=== PATIENT | female | born 1990 | race Caucasian/White ===

== ENCOUNTER 2025-08-19 17:10 | Emergency (ER) | payer OTHER, SELFPAY ==
[2025-08-19 17:18] VITALS: BP 122/87
[2025-08-19 18:31] VITALS: BMI 26.2
[2025-08-19 18:49] LABS: Hematocrit 45.4 % (37.0-47.0); Hemoglobin 16.4 g/dL (12.0-16.0); Mean Corp Hgb Conc. 36.1 g/dL (33.0-37.0); Mean Corpuscular Volume 86.1 fL (81.0-99.0); Nucleated Red Blood Cells % 0 %; Platelet Count 202 10^3/uL (130-400); Red Cell Dist. Width 11.6 % (11.5-14.5)
[2025-08-19 19:04] LABS: ALT (SGPT) 16 U/L (0-35); AST (SGOT) 21 U/L (14-36); Albumin 5.0 g/dl (3.5-5.0); Alkaline Phosphatase 68 U/L (38-126); Blood Urea Nitrogen 16 mg/dl (7-17); Calcium 9.2 mg/dl (8.4-10.2); Carbon Dioxide 21 mmol/L (22-30); Chloride 107 mmol/L (98-107); Estimated Creatinine Clearance 96 ml/min; Glucose 126 mg/dl (70-99); Potassium 4.3 mmol/L (3.5-5.1); Sodium 140 mmol/L (135-145); Total Protein 7.7 g/dl (6.3-8.2); eGFR > 60.00
--- NOTE | 2025-08-19 19:36 | ED.GENMED ---
History of Present Illness
General
Chief Complaint: Abdominal Symptoms
Source: patient
Exam Limitations: none
Time Seen by Provider: 08/19/25 17:59
Nursing documentation reviewed up to this point in time: agreed with
History of Present Illness
History of Present Illness:
Patient to the emergency department with complaint of abdominal pain, nausea, vomiting, diarrhea. Symptoms started 3 days ago. She denies fever or chills. She denies sick contacts. Unable to eat or drink x 3 days. Brought to the emergency
department by her father for evaluation. No prior history of same
Past History
Past History
ED Past Medical History: Psychiatric (adhd)
ED Past Surgical History: Appendectomy and Tonsilectomy
Social History
Tobacco: Non-smoker
Alcohol: None
Drug: None
Living: with family
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
Family History
Family History: Other (n/c)
Review of Systems
Review of Systems
Allergies reviewed?: Yes
All Other Systems: ROS reviewed and negative except as documented in HPI and ROS
Constitutional: Reports no symptoms
EENT: Reports no symptoms
Respiratory: Reports no symptoms
Cardiac: Reports no symptoms
ABD/GI: Reports abdominal pain (Diffuse)
: Reports no symptoms
Musculoskeletal: Reports no symptoms
Skin: Reports no symptoms
Neurological: Reports no symptoms
Psychiatric: Reports no symptoms
Phy Exam
General Physical Exam
General Presentation: moderate distress
General age: appears stated age
General Skin: warm and dry
General Habitus: normal
General Mental: alert
Cardiovascular Exam
Cardiovascular Exam: regular rate/rhythm
Gastrointestinal Exam
Gastrointestinal Exam: normal bowel sounds, non tender, soft, no organomegaly, no pulsatile mass and non distended
Palpation: generalized: Moderate tenderness
Neurological Exam
Neurological Exam: alert and oriented x3
Musculoskeletal Exam
Musculoskeletal Exam: full ROM and neuro vasc intact
Skin Exam
Skin Exam: normal color, warm/dry and no rash
Psychiatric Exam
Psychiatric Exam: normal mood/affect
Course
Orders/Labs/Results
Orders:
Orders
08/19/25 18:38
CMP [Comprehensive Metabolic Panel] Urgent
Complete Blood Count/With Diff Urgent
HCG, Serum Qualitative Screen Urgent
Comment: ADD ON
08/19/25 19:34
Ketorolac [Toradol] 30 mg IV NOW STA
Ondansetron Injectable [Zofran] 4 mg IV NOW STA
08/19/25 19:35
CT Abd/pelvis W Iv Cont Urgent
Comment:
Reason For Exam: vomiting, diarhea, diffuse pain
08/19/25 19:38
Add On- LAB Urgent
Tests Added?: HCG serum qualitative
08/19/25 20:52
Urinalysis Reflex To Culture Urgent
Date Specimen was Collected: 08/19/25
Time Specimen was Collected: 20:49
Urine Microscopic Reflex Cult Urgent
Urine Culture Urgent
ALFREDO Source: U
Specimen Description:
Date Specimen was Collected: 08/19/25
Time Specimen was Collected: 20:49
08/19/25 21:57
Ondansetron Injectable [Zofran] 4 mg IV NOW STA
08/19/25 22:45
Acetaminophen [Tylenol] 1,000 mg PO NOW STA
Abnormal Lab Results
08/19/25 08/19/25
18:38 20:52
Hgb 16.4 H g/dL
(12.0-16.0)
MCH 31.1 H pg
(27.0-31.0)
Absolute Neuts (auto) 7.1 H 10^3/uL
(1.4-6.5)
Absolute Lymphs (auto) 0.3 L 10^3/uL
(1.2-3.4)
Neutrophils % 92.2 H %
(42.2-75.2)
Lymphocytes % 3.5 L %
(20.5-51.1)
Carbon Dioxide 21 L mmol/L
(22-30)
Glucose 126 H mg/dl
(70-99)
Total Bilirubin 1.7 H mg/dl
(0.2-1.3)
Urine Ketones 3+ A
(Negative)
Leukocyte Esterase Rfl 1+ A
(Negative)
Urine Bacteria (Reflex) Moderate A
(Negative)
Urine Albumin (Reflex) 2+ A
(Neg - Trace)
08/19/25 18:38
08/19/25 18:38
Vital Signs
Initial and Last Documented VS:
Initial Vital Signs
Temp Pulse Resp BP Pulse Ox
98.0 F 110 20 122/87 98
08/19/25 17:18 08/19/25 17:18 08/19/25 17:18 08/19/25 17:18 08/19/25 17:18
Last Documented Vital Signs
Temp Pulse Resp BP Pulse Ox
98.0 F 90 18 113/74 100
08/19/25 17:18 08/19/25 22:00 08/19/25 22:00 08/19/25 22:00 08/19/25 22:00
*Radiology
Radiology exam reviewed: radiology read reviewed
*Pulse Oximetry
SaO2: 98
Oxygen Mode of Delivery: Room air
Patient hypoxic: no
*Critical Care Note
Total Time (30-74mins, 75-104mins- exclusive of procedures): Not Applicable
Update Note
Update Note:
Patient to the emergency department for evaluation of nausea vomiting diarrhea. Symptoms started 3 days ago. Vital signs are stable and she remains afebrile. She was given IV fluids and Zofran with improvement of her symptoms. She is now
tolerating p.o. fluids. No episodes of diarrhea while in the ED. Labs reviewed WBC 7.7, T. bili 1.7 with normal LFTs. UA negative for UTI. CT of abdomen and pelvis completed. Results reviewed with her. Fluid-filled loops of ascending colon and
cecum as well as mildly prominent fluid-filled loops in the small bowel suspicious for enterocolitis. Discussed these findings with her. Will discharge home, she will increase her p.o. fluid intake. She given a prescription for Zofran as needed.
Close follow-up with PCP. She was given instructions on signs and symptoms to return to the emergency department and she is agreeable for this plan
ED Attending Note
-
Portions of this chart may have been created with voice recognition software.� Occasional wrong word or��sound alike� substitutions may have occurred due to the inherent limitations of voice recognition software.
Discharge Plan
Departure
Patient Disposition: Home (Routine Discharge)
Date of Disposition: 08/19/25
Time of Disposition: 22:45
Patient with high blood pressure during this ER visit?: No
Condition: Good
Covid-19: Not Applicable
Discharge Problem:
Vomiting and diarrhea, Enterocolitis
Instructions: Diarrhea in teens and adults, Clear Liquid Diet, Dehydration, Adult (DC), Nausea and Vomiting, Adult (DC)
Prescriptions:
New
ondansetron 4 mg tablet,disintegrating
4 mg PO TID PRN (Reason: nausea and vomiting) 4 Days Qty: 12 0RF
No Action
sertraline 50 MG tablet
50 mg PO DAILY
ondansetron 4 mg tablet,disintegrating
4 mg PO TID PRN (Reason: nausea and vomiting) Qty: 10 0RF
Referrals:
PRIVATE,PHYSICIAN [Family Provider, Internal Medicine]
Stand Alone Forms: Return to Work
Activity Restrictions/Additional Instructions:
Follow-up with your family doctor on Thursday. Return to the emergency department immediately for any changes in/worsening of your symptoms.
Interventions
Interventions:
*Risk Screen - Suicide Last Done: 08/19/25 20:00
*General Assessment Last Done: 08/19/25 17:18
*Neglect/Abuse Screening Last Done: 08/19/25 21:00
*ED- Fall Risk Assessment Last Done: 08/19/25 21:14
*ED COVID-19 Vaccine History Last Done: 08/19/25 18:31
*ED Influenza Vaccine History Last Done: 08/19/25 18:31
UV-Bxlkeh-Wawvlwbsbv Assessment Last Done: 08/19/25 19:00
Discharge Date and Time
Print Language: TURKMEN
[2025-08-19] MEDS: ZOFRAN 4 MG IV ×2 (19:53→22:02)
[2025-08-19] MEDS: TORADOL 30 MG IV (19:53)
[2025-08-19 20:00] VITALS: BP 111/66
[2025-08-19 20:27] LABS: HCG, Serum Qualitative Screen Negative
[2025-08-19 21:06] LABS: Urine Character Clear (Clear)
[2025-08-19 21:18] LABS: Urine Squamous Cell 26-30 /LPF (Few)
[2025-08-19 21:19] LABS: Urine Red Blood Cell 0-2 /HPF (0-2)
[2025-08-19 22:00] VITALS: BP 113/74
[2025-08-19] MEDS: TYLENOL 1000 MG PO (23:09)
== END 2025-08-19 23:13 | disposition home or self-care (01) ==
LOC: EMR 17:10
PROVIDERS: Nurse Practitioner; EMERGENCY PHYSICIAN Emergency Medicine
DX: K52.9 Noninfective gastroenteritis and colitis, unspecified (principal); F90.9 Attention-deficit hyperactivity disorder, unspecified type
CPT/HCPCS: 99284; 96374; 96375; 96376; 74177; 80053; 81003; 81015; 84703; 85025; 87086; Q9967